=== PATIENT | male | born 1965 | race Two or more races ===

== ENCOUNTER 2023-09-05 13:55 | Inpatient (IN) | payer OTHER ==
[2023-09-05 14:32] VITALS: BMI 25.1
[2023-09-05] MEDS ORDERED: ONDANSETRON *ODT* 4 MG TABLET SL PRN (15:29)
[2023-09-05] MEDS ORDERED: BENZOCAINE/MENTHOL (CHLORASEPTIC ) LOZENGE MM PRN (15:29)
[2023-09-05] MEDS ORDERED: POLYETHYLENE GLYCOL (HEALTHYLAX) 3350 17 GM PACKET PO PRN (15:29)
[2023-09-05] MEDS ORDERED: MAG HYDROX/AL HYDROX/SIMETH 30 ML UNIT-DOSE CUP PO PRN (15:29)
[2023-09-05] MEDS ORDERED: BENZONATATE 200 MG CAPSULE PO PRN (15:29)
[2023-09-05] MEDS ORDERED: BISMUTH SUBSALICYLATE 524 MG/30 ML PO PRN (15:29)
[2023-09-05] MEDS ORDERED: LOPERAMIDE HCL 2 MG CAPSULE PO PRN (15:29)
[2023-09-05] MEDS ORDERED: ACETAMINOPHEN 325 MG TABLET (FP) PO PRN (15:29)
[2023-09-05] MEDS ORDERED: NALOXONE HCL (KLOXXADO) 8 MG SPRAY NS PRN (15:29)
[2023-09-05] MEDS ORDERED: DICYCLOMINE HCL 10 MG CAPSULE PO PRN (15:29)
[2023-09-05] MEDS ORDERED: hydrOXYzine PAMOATE 25 MG CAPSULE (FP) PO PRN (15:29)
[2023-09-05] MEDS ORDERED: IBUPROFEN 400 MG TABLET (FP) PO PRN (15:29)
[2023-09-05] MEDS ORDERED: guaiFENesin 600 MG TABLET.ER (FP) PO PRN (15:29)
[2023-09-05] MEDS ORDERED: MAGNESIUM HYDROX 2400MG/30ML ORAL SUSPENSION 30 ML CUP PO PRN (15:29)
[2023-09-05] MEDS ORDERED: NALOXONE HCL 0.4 MG/ML VIAL IM PRN (15:29)
[2023-09-05] MEDS ORDERED: LORazepam 2 MG TABLET ONE (16:11)
[2023-09-05] MEDS: LORazepam 2 MG TABLET PO ONE (16:12)
[2023-09-05] MEDS: PRENATAL VITAMINS W/ FOLIC ACID TABLET (FP) PO SCH (16:12)
[2023-09-05] MEDS: LORazepam 2 MG TABLET PO SCH (17:23)
[2023-09-05] MEDS: cloNIDine HCL 0.1 MG TABLET PO ONE (21:37)
[2023-09-05] MEDS: MELATONIN 5 MG TABLETS PO SCH (22:22)
[2023-09-05] MEDS: THIAMINE HCL 100 MG TABLET (FP) PO SCH (22:23)
[2023-09-06 10:31] LABS: HEMATOCRIT 31.4 % (35.4-49); HEMOGLOBIN 10.6 GM/dL (11.7-16.9); MCH 35.3 pg (25.7-33.7); MEAN CELL VOLUME 104.1 fl (80-96); MEAN PLT VOLUME 8.4 fl (7.5-11.1); PLATELET COUNT 195 10^3/uL (134-434); RBC 3.01 M/mm3 (4.00-5.60); RDW 15.2 % (11.9-15.9); WHITE BLOOD COUNT 4.4 K/mm3 (4.0-10.0)
[2023-09-06] MEDS: amLODIPine BESYLATE 5 MG TABLET (FP) PO ONE (10:32)
[2023-09-06] MEDS: NICOTINE 14 MG/24 HOURS TOPICAL PATCH TD SCH (10:34)
[2023-09-06 10:45] LABS: CHLORIDE 104 mmol/L (98-107); POTASSIUM 3.6 mmol/L (3.5-5.1); SODIUM 139 mmol/L (136-145)
[2023-09-06 10:54] LABS: ALBUMIN 2.8 g/dl (3.4-5.0); ANION GAP 6 mmol/L (4-13); CALCIUM 8.4 mg/dL (8.5-10.1); CO2 29 mmol/L (21-32)
[2023-09-06 10:55] LABS: GLUCOSE,RANDOM 122 mg/dL (74-106)
[2023-09-06 10:56] LABS: CREATININE 0.7 mg/dL (0.55-1.3)
[2023-09-06 10:57] LABS: SGOT/AST 39 U/L (15-37)
[2023-09-06 10:58] LABS: BILIRUBIN,TOTAL 0.8 mg/dL (0.2-1); TOT PROT 6.7 g/dl (6.4-8.2)
[2023-09-06 10:59] LABS: ALK PHOS 91 U/L (45-117); SGPT/ALT 11 U/L (13-61)
[2023-09-07] MEDS: LORazepam 1 MG TABLET PO SCH (05:30)
[2023-09-07] MEDS: cloNIDine HCL 0.1 MG TABLET PO PRN (05:35)
[2023-09-07] MEDS: LACTULOSE 20 GM/30 ML UDC (FOR ORAL USE ONLY) PO SCH (10:32)
[2023-09-07] MEDS: METHOCARBAMOL 500 MG TABLET PO PRN (10:34)
[2023-09-07] MEDS: IBUPROFEN 600 MG TABLET (FP) PO PRN (17:37)
[2023-09-07] MEDS: LORazepam 1 MG TABLET PO PRN (20:29)
[2023-09-08] MEDS ORDERED: LORazepam 0.5 MG TABLET PO PRN
[2023-09-08] MEDS: LORazepam 0.5 MG TABLET PO SCH (05:47)
[2023-09-08] MEDS: amLODIPine BESYLATE 10 MG TABLET (FP) PO SCH (11:43)
[2023-09-09] MEDS: LORazepam 0.5 MG TABLET PO ONE (05:14)
[2023-09-09 09:34] VITALS: BP 128/82; PULSE 101; RESP 20; TEMP 97.7
== END 2023-09-09 10:40 | disposition home or self-care (01) | DRG 775 ==
LOC: YASAS 13:55 → Y6N 16:01
PROVIDERS: ADMIT Allergy & Immunology; ATTEND Surgery
PROC: HZ2ZZZZ Detoxification Services for Substance Abuse Treatment (ICD-10-PCS; principal; 2023-09-05)
DX: F10.230 Alcohol dependence with withdrawal, uncomplicated (principal); F17.210 Nicotine dependence, cigarettes, uncomplicated; E72.20 Disorder of urea cycle metabolism, unspecified; I10 Essential (primary) hypertension; Z59.02 Unsheltered homelessness
CPT/HCPCS: 36415; 80053; 80307; 82140; 85027; 86780; 87635; 93005; 93010

== ENCOUNTER 2024-06-22 11:26 | Inpatient (IN) | payer OTHER ==
[2024-06-22] MEDS ORDERED: amLODIPine BESYLATE 5 MG TABLET (FP) ONE (12:21)
[2024-06-22] MEDS: amLODIPine BESYLATE 5 MG TABLET (FP) PO ONE (12:22)
[2024-06-22] MEDS ORDERED: DICYCLOMINE HCL 10 MG CAPSULE PO PRN (12:25)
[2024-06-22] MEDS ORDERED: guaiFENesin 600 MG TABLET.ER (FP) PO PRN (12:25)
[2024-06-22] MEDS ORDERED: ACETAMINOPHEN 325 MG TABLET (FP) PO PRN (12:25)
[2024-06-22] MEDS ORDERED: MAGNESIUM HYDROX 2400MG/30ML ORAL SUSPENSION 30 ML CUP PO PRN (12:25)
[2024-06-22] MEDS ORDERED: hydrOXYzine PAMOATE 25 MG CAPSULE (FP) PO PRN (12:25)
[2024-06-22] MEDS ORDERED: NALOXONE (NARCAN) HCL 4 MG/0.1 ML SPRAY NS PRN (12:25)
[2024-06-22] MEDS ORDERED: ONDANSETRON *ODT* 4 MG TABLET SL PRN (12:25)
[2024-06-22] MEDS ORDERED: BENZOCAINE/MENTHOL (CHLORASEPTIC ) LOZENGE MM PRN (12:25)
[2024-06-22] MEDS ORDERED: LOPERAMIDE HCL 2 MG CAPSULE PO PRN (12:25)
[2024-06-22] MEDS ORDERED: NICOTINE POLACRILEX 4 MG LOZENGE BC PRN (12:25)
[2024-06-22] MEDS ORDERED: POLYETHYLENE GLYCOL (HEALTHYLAX) 3350 17 GM PACKET PO PRN (12:25)
[2024-06-22] MEDS ORDERED: MAG HYDROX/AL HYDROX/SIMETH 30 ML UNIT-DOSE CUP PO PRN (12:25)
[2024-06-22] MEDS ORDERED: LORazepam 1 MG TABLET PO PRN (12:25)
[2024-06-22] MEDS ORDERED: NICOTINE POLACRILEX 4 MG GUM BUC PRN (12:25)
[2024-06-22] MEDS ORDERED: IBUPROFEN 400 MG TABLET (FP) PO PRN (12:25)
[2024-06-22] MEDS ORDERED: BISMUTH SUBSALICYLATE 262 MG/15 ML BTL PO PRN (12:25)
[2024-06-22] MEDS ORDERED: amLODIPine BESYLATE 10 MG TABLET (FP) PO ONE (12:30)
[2024-06-22] MEDS ORDERED: amLODIPine BESYLATE 5 MG TABLET (FP) PO SCH (12:30)
[2024-06-22 16:04] VITALS: BMI 26.2
[2024-06-22] MEDS: LORazepam 2 MG TABLET PO SCH (17:17)
[2024-06-22] MEDS: IBUPROFEN 600 MG TABLET (FP) PO PRN (17:17)
[2024-06-22] MEDS: MELATONIN 5 MG TABLETS PO SCH (22:19)
[2024-06-22] MEDS: THIAMINE 100 MG TABLET PO SCH (22:20)
[2024-06-23] MEDS: BENZONATATE 200 MG CAPSULE PO PRN (05:34)
[2024-06-23 09:51] LABS: HEMATOCRIT 38.5 % (35.4-49); HEMOGLOBIN 12.4 GM/dL (11.7-16.9); MCH 33.6 pg (25.7-33.7); MCHC 32.3 g/dl (32.0-35.9); MEAN CELL VOLUME 103.9 fl (80-96); MEAN PLT VOLUME 10.4 fl (7.5-11.1); PLATELET COUNT 82 10^3/uL (134-434); RDW 16.2 % (11.9-15.9); WHITE BLOOD COUNT 4.4 K/mm3 (4.0-10.0)
[2024-06-23 10:25] LABS: POTASSIUM 4.2 mmol/L (3.5-5.1)
[2024-06-23 10:27] LABS: ALBUMIN 3.7 g/dl (3.4-5.0); CALCIUM 9.3 mg/dL (8.5-10.1)
[2024-06-23 10:28] LABS: BLOOD UREA NITROGEN 14.9 mg/dL (7-18)
[2024-06-23 10:30] LABS: CREATININE 1.1 mg/dL (0.55-1.3)
[2024-06-23 10:32] LABS: BILIRUBIN,TOTAL 1.2 mg/dL (0.2-1); TOT PROT 7.9 g/dl (6.4-8.2)
[2024-06-23] MEDS: PRENATAL VITAMINS W/ FOLIC ACID TABLET (FP) PO SCH (10:48)
[2024-06-23] MEDS: amLODIPine BESYLATE 10 MG TABLET (FP) PO SCH (10:49)
[2024-06-23] MEDS: METHOCARBAMOL 500 MG TABLET PO PRN (22:37)
[2024-06-24] MEDS: LORazepam 1 MG TABLET PO SCH (05:37)
[2024-06-25] MEDS ORDERED: LORazepam 0.5 MG TABLET PO PRN
[2024-06-25] MEDS: LORazepam 0.5 MG TABLET PO SCH (05:25)
[2024-06-25] MEDS ORDERED: NALOXONE (NYS OPIOID OVERDOSE PROGRAM) 4 MG/0.1 ML SPRAY NS PRN (12:00)
[2024-06-26] MEDS: LORazepam 0.5 MG TABLET PO ONE (05:40)
[2024-06-26 11:44] VITALS: BP 119/71; PULSE 86; RESP 17; TEMP 98.1
== END 2024-06-26 10:41 | disposition home or self-care (01) | DRG 775 ==
LOC: YASAS 11:26 → Y6N 12:22
PROVIDERS: ADMIT Allergy & Immunology; ATTEND Surgery
PROC: HZ2ZZZZ Detoxification Services for Substance Abuse Treatment (ICD-10-PCS; principal; 2024-06-22)
DX: F10.230 Alcohol dependence with withdrawal, uncomplicated (principal); F17.210 Nicotine dependence, cigarettes, uncomplicated; E72.20 Disorder of urea cycle metabolism, unspecified; I10 Essential (primary) hypertension; K74.60 Unspecified cirrhosis of liver; M25.552 Pain in left hip; M54.50 Low back pain, unspecified; G89.29 Other chronic pain; Z91.81 History of falling; Z59.00 Homelessness unspecified
CPT/HCPCS: 0241U-QW; 36415; 80053; 80305; 80307; 85027; 86780; 93005; 93010